=== PATIENT | female | born 1960 | race Caucasian/White ===

== ENCOUNTER 2016-12-13 06:30 | Day surgery (SDC) | payer BC ==
[~2016-12-13 06:30] MED LIST: Buffered Lidocaine 0.9% SYRIN* 5 ML/SYR SYRINGE ONE; Dexamethasone IV* 4 MG/ML 1 ML (4 MG) IV SLOW PU ONE; Famotidine IV* 10 MG/ML 2 ML (20 mg) IV ONE
[2016-12-13] MEDS ORDERED: Famotidine IV* 10 MG/ML 2 ML (20 mg) ONE (06:48)
[2016-12-13] MEDS ORDERED: Dexamethasone IV* 4 MG/ML 1 ML (4 MG) ONE (06:48)
[2016-12-13] MEDS ORDERED: ceFAZolin 2 GM PREMIX(*) 2 GM/50 ML BAG IVPB ONE (06:48)
[2016-12-13] MEDS ORDERED: Bupivacaine 0.25% SDV* 30 ML ONE (07:08)
[2016-12-13] MEDS ORDERED: Midazolam* 1 MG/ML 5 ML VIAL (5 MG) ONE (07:23)
[2016-12-13] MEDS ORDERED: fentaNYL* 50 MCG/ML 2 ML VIAL (100 MCG VIAL) ONE (07:23)
[2016-12-13] MEDS ORDERED: DiMENhydriNATE IV* 50 MG/ML VIAL IV PUSH PRN (07:31)
[2016-12-13] MEDS ORDERED: fentaNYL* 50 MCG/ML 2 ML VIAL (100 MCG VIAL) IV PRN (07:31)
[2016-12-13] MEDS ORDERED: Ketorolac INJ* 30 MG/ML 1 ML VIAL IV PRN (07:31)
[2016-12-13] MEDS ORDERED: Propofol* 10 MG/ML 20 ML BTL IV PUSH ONE ×2 (07:47→07:59)
[2016-12-13] MEDS ORDERED: Ketorolac INJ* 30 MG/ML 1 ML VIAL ONE (07:47)
[2016-12-13 09:27] VITALS: BP 107/66
--- NOTE | 2016-12-14 00:47 | OP ---
DATE OF OPERATION: 12/13/16 - [facility] DATE OF : 58 SURGEON: Eduin Lubin MD CONCILIATOR: SURI Daniel ANESTHESIOLOGIST: Dr. Fowler. ANESTHESIA: General. PRE-OP DIAGNOSES: Left carpal and cubital tunnel syndrome. POST-OP DIAGNOSES: Left carpal and cubital tunnel syndrome. OPERATIVE PROCEDURE: 1. Left open carpal tunnel release. 2. Left in situ cubital tunnel release. INDICATIONS: Kaitlyn had progressive symptoms related to carpal and cubital tunnel syndromes over the last year. She tried nonoperative treatment. She had had electrodiagnostic studies. We had talked about risks and benefits of surgery. She wanted to proceed with the left open carpal and cubital tunnel release. ESTIMATED BLOOD LOSS: 5 mL. COMPLICATIONS: None. FINDINGS: As expected. DESCRIPTION OF PROCEDURE: Kaitlyn was seen in the preoperative holding area. The correct side, site, and procedure were identified. We came back to the operating room and the arm was prepped and draped in the usual fashion. A formal time-out was performed. I began by making a 2- to 3-cm incision longitudinally in standard location for an open carpal tunnel release. Dissection was carried down through the subcutaneous tissue and palmar fascia to expose the transverse carpal ligament. I began the release distally and then proceeded proximally releasing the transverse carpal ligament to stop the radial aspect of the hook of the hamate. When I reached the proximal aspect of the incision, I released the subcutaneous tissue and retracted this ulnarly and volarly. I then used the tenotomy scissors under direct visualization and released the rest of the transverse carpal ligament and the distal antebrachial fascia to a level several centimeters proximal to the wrist flexion crease and just off the ulnar aspect of the palmaris longus tendon. I then checked the decompression. I released a few more fibers distally. The superficial palmar arch was seen and preserved. Once I felt like I had an excellent release proximally and distally and there was no compression on the nerve, I went ahead and irrigated out the wound. The skin was then closed with 4-0 nylon suture. I then turned my attention to the elbow where a curvilinear incision was made directly centered over Ceja's ligament and extending a few centimeters distal and proximal to that. Incision was then made and dissection carried down to the subcutaneous tissue sharply and with the Bovie proximally. Proximal to Ceja's ligament, distal to that, I used a tenotomy scissors to bluntly separate the subcutaneous tissue. Large medial antebrachial cutaneous nerve was identified and preserved throughout the case. The traversing veins were cauterized. Once I had my superficial dissection done, I began the decompression just proximal to Ceja's ligament, opening up the fascia just on the anterior aspect of the triceps musculature. The ulnar nerve was identified. The release was carried out proximally past 8 cm proximal to the medial epicondyle where the arcade of Chuckey was released. I then came back distally and released the Ceja's ligament. The superficial fascia of the FCU was then released while we preserved the medial antebrachial cutaneous nerve. The MedPlexus-navy was used to split the 2 edges of the FCU and then the deep subfacial layer was released several centimeters distal to the medial epicondyle. I then checked, there was absolutely no compression on the nerve anywhere along its course. I flexed and extended the elbow multiple times. There was not any vidya instability. So, we went ahead and irrigated out the wound. I cauterized any potential bleeders with the Bovie cautery. Skin was then reapproximated with some 3-0 Polysorb suture and the skin was closed with 4 -0 nylon suture. I then infiltrated all the operative areas with 0.25% Marcaine. Wounds were dressed with Xeroform, 4x4s, sterile Webril, and ABD was placed over the elbow and then Huber wraps. Tourniquet was then deflated. Fingers pinked up immediately. I had exsanguinated the arm with the Esmarch and the tourniquet was inflated to 250 mmHg prior to making skin incision. She was then taken to the recovery room in stable condition. [id number]/[facility] #: [id number] ELAN
== END 2016-12-13 09:42 | disposition home or self-care (01) ==
LOC: OREAST 06:30
PROVIDERS: ATTEND Orthopaedic Surgery Hand Surgery
DX: G56.02 Carpal tunnel syndrome, left upper limb (principal); G56.22 Lesion of ulnar nerve, left upper limb; J45.909 Unspecified asthma, uncomplicated; F41.8 Other specified anxiety disorders; F17.200 Nicotine dependence, unspecified, uncomplicated; Z85.820 Personal history of malignant melanoma of skin
CPT/HCPCS: J0690; J1100; J1885; J2250; J2704; J3010

== ENCOUNTER → 2018-06-09 | Day surgery (SDC) | payer BC ==
[~2018-06-09] MED LIST changes: +Acetaminophen TAB* 325 MG PO PRN; +Buffered Lidocaine 0.9% SYRIN* 5 ML/SYR SYRINGE INTRADERM ONE; +Bupivacaine 0.25% SDV PF* 10 ML VIAL INJ ONE; -Dexamethasone IV* 4 MG/ML 1 ML (4 MG) IV SLOW PU ONE; -Famotidine IV* 10 MG/ML 2 ML (20 mg) IV ONE; +Lidocaine 1% INJ* 10 MG/ML 30 ML SDV ONE; +Lidocaine 2% PF * 5 ML VIAL ONE; +Midazolam* 1 MG/ML 2 ML VIAL (2 MG) ONE; +Naloxone* 0.4 MG/ML 1 ML VIAL IV PRN; +Ondansetron INJ* 2 MG/ML VIAL IV PRN; +Propofol* 10 MG/ML 20 ML BTL ONE; +fentaNYL* 50 MCG/ML 2 ML VIAL (100 MCG VIAL) IV PRN; +fentaNYL* 50 MCG/ML 2 ML VIAL (100 MCG VIAL) ONE
[2018-06-09 13:05] VITALS: BP 107/77
--- NOTE | 2018-06-10 05:39 | OP ---
DATE OF OPERATION: 06/09/18 - [facility] DATE OF : 58 SURGEON: Eduin Lubin MD GARDEN WORKER: SURI Daniel. ANESTHESIOLOGIST: Dr. Berrios. ANESTHESIA: Local MAC. PRE-OP DIAGNOSIS: Left index finger mucous cyst. POST-OP DIAGNOSIS: Left index finger mucous cyst. OPERATIVE PROCEDURE: Excision of left index finger mucous cyst. INDICATIONS: Kaitlyn has a very large mucous cyst. We talked about treatment options and she elected to proceed with excision of the cyst. ESTIMATED BLOOD LOSS: 1 mL. COMPLICATIONS: None. FINDINGS: See above and below. DESCRIPTION OF PROCEDURE: Kaitlyn was seen in the preoperative holding area. The correct site, side, and procedure were identified. We came back to the operating room. A digital block was performed. The arm was prepped and draped in the usual fashion and a time-out was performed. The digital block was performed with 0.25% Marcaine. A finger tourniquet was applied and left on during the procedure. I made a T-shaped incision over the radial aspect of the joint, over the dorsum of the joint. The flap was raised full thickness off the paratenon and the cyst was excised, taking care not to perforate the skin. The cyst was handed off as a specimen. I tracked the cyst back to the interval between the radial collateral ligament and the extensor tendon. The cyst together with the capsule was excised there. The area was cauterized with the bipolar cautery. The bone spurs removed with the rongeur. Once everything was nice and smooth, we irrigated out the wound. Skin was closed with 4-0 nylon suture. Soft dressings were applied and she was taken to the recovery room in stable condition. [id number]/[facility] #: [id number] MTDD
== END | disposition home or self-care (01) ==
LOC: OR 10:20
PROVIDERS: ATTEND Orthopaedic Surgery Hand Surgery
DX: L72.0 Epidermal cyst (principal); Z85.820 Personal history of malignant melanoma of skin; J45.909 Unspecified asthma, uncomplicated; M19.90 Unspecified osteoarthritis, unspecified site; K21.9 Gastro-esophageal reflux disease without esophagitis; F41.8 Other specified anxiety disorders; Z72.0 Tobacco use
CPT/HCPCS: 88304; J2250; J2704; J3010; J3490